=== PATIENT | male | born 1940 | race Caucasian/White ===

== ENCOUNTER 2021-08-17 09:57 | Day surgery (SDC) | payer MEDICARE, BC ==
[2021-08-17] VITALS (12 sets, daily range): BP systolic 134–157; BP diastolic 68–92
[~2021-08-17] VITALS: Ht 188 cm; Wt 126.2 kg
[~2021-08-17 09:57] MED LIST: AMLO2.5T5 PO; ASHW300C PO; CYAN250010 PO; ERGO400C PO; FOLI0.4T6 PO; LOSA100T57 PO; MAGN400T39 PO; PRAV20TA4 PO; SULF500T59 PO; ZINC50TA67 PO; cefazolin/dext.iso 2gm/50ml IV ONE; famotidine 20mg tablet PO ONE; ringers solution, lacted 1,000 ML IV SCH; tumeric PO
[2021-08-17] MEDS ORDERED: bacitracin 15gm ointment TP ONE ×2 (11:06→15:12)
[2021-08-17 11:25] LABS: BASOPHILS % (AUTO) 0.4 % (0-1); EOSINOPHILS # (AUTO) 0.1 X10'3 (0-0.9); EOSINOPHILS % (AUTO) 1.2 % (0-6); LYMPHOCYTES # (AUTO) 1.2 X10'3 (1.1-4.8); LYMPHOCYTES % (AUTO) 17.1 % (21-51); MEAN CORPUSCULAR HEMOGLOBIN 33.3 PG (27.0-31.0); MEAN CORPUSCULAR HGB CONC 34.1 g/dL (33.0-36.5); MEAN CORPUSCULAR VOLUME 97.5 FL (78-98); MEAN PLATELET VOLUME 6.7 FL (7.4-10.4); MONOCYTES # (AUTO) 0.6 X10'3 (0-0.9); MONOCYTES % (AUTO) 8.6 % (2-12); NEUTROPHILS % (AUTO) 72.7 % (42-75); PRE OP HEMATOCRIT 39.9 % (42.0-52.0); PRE OP HEMOGLOBIN 13.6 g/dL (14.0-17.9); PRE OP PLATELET COUNT 262 X10'3 (140-440); RED BLOOD COUNT 4.09 X10'6 (4.70-6.10); RED CELL DISTRIBUTION WIDTH 13.5 % (11.5-14.5)
[2021-08-17 11:52] LABS: ALBUMIN 3.9 G/DL (3.4-5.0); ALBUMIN/GLOBULIN RATIO 1.1 (1.1-1.5); ALKALINE PHOSPHATASE 75 IU/L (46-116); BLOOD UREA NITROGEN 21 MG/DL (7-18); CALCIUM 9.4 MG/DL (8.5-10.1); CHLORIDE 102 MMOL/L (99-107); PRE OP ALT 21 U/L (30-65); PRE OP ANION GAP 12 (8-16); PRE OP AST 19 U/L (10-37); PRE OP BILIRUB, TOTAL 0.5 MG/DL (0.0-1.0); PRE OP GLUCOSE 114 MG/DL (70-104); PRE OP POTASSIUM 4.2 MMOL/L (3.4-5.1); PRE OP SODIUM 139 MMOL/L (135-145); TOTAL CARBON DIOXIDE 24.9 MMOL/L (24-32); TOTAL PROTEIN 7.5 G/DL (6.4-8.2); eGFR 49 ML/MIN
[2021-08-17] MEDS ORDERED: BUPIVAcaine/PF 2.5 mg/ml (0.25%) 30ml vial ONE (12:44)
[2021-08-17] MEDS ORDERED: fentaNYL/PF 50MCG/1 ML 2ML syringe ONE (12:47)
[2021-08-17] MEDS ORDERED: MIDAZolam 1 MG/ML 5ML VIAL ONE ×2 (12:48→14:49)
--- NOTE | 2021-08-17 15:34 | NUR ---
Received from OR via [facility] , accompanied by Anesthesiologist DR TADEO and report given by Anesthesiolgist. PT AROUSALBE, AWAKE, ALERT AND ORIENTED. PT DENIES PAIN. DRSG TO RIGHT FOOT W/ SUGAR BANDAGE CDI. PT SENSATION NOTED TO BE AT MID THIGH LEVEL AT THIS TIME. UNABLE TO WIGGLE TOES OR MOVE FEET AT THIS TIME. PT DENIES NAUSEA AND STATES HE IS READY FOR A DRINK.
--- NOTE | 2021-08-17 16:02 | NUR ---
PT AWAKE, ALERT AND ORIENTED. ABLE TO WIGGLE FEET. SENSATION NOW AT KNEE LEVEL BILATERALLY. PT TOLERATING [place]. DENIES PAIN AND NAUSEA.
--- NOTE | 2021-08-17 16:17 | NUR ---
PT ABLE TO PIVOT TO W/C FROM BED W/ASSIST. D/C INSTRUCTIONS GIVEN AND GONE OVER W/PT AND PTS WHO VERBALIZED UNDERSTANDING. PTS PICKED UP A KNEE SCOOTER AND HAS AVAILABLE FOR PT WHEN HE GETS HOME, THEY ALSO STATED THEY HAVE A WALKER AND CRUTCHES. THEY ARE STAY[place] IN TOWN WITH FRIENDS THAT CAN ASSIST PT INTO THE HOUSE. PT W/SENSATION TO BOTH LEGS AND FEET. PT D/CD TO HOME VIA W/C TO PRIVATE VEHICLE W/O INCIDENT. Addendum: 08/17/21 at 1908 by Lisa Casarez RN TIME OF NOTE AND D/C WAS 1754
--- NOTE | 2021-08-17 16:50 | NUR ---
RECEIVED REPORT FROM RN, ASSUMED CARE OF PT, CALLED DR HOWELL AND CLARIFIED WEIGHT BEARING STATUS, PT REQUESTING TO BE ABLE TO USE A KNEE TROLLER, DR HOWELL SAID YES THAT HE COULD. PTS GOING TO [facility] TO HOME HEALTH ADMINISTRATOR KNEE STROLLER. PT W/O C/O. Addendum: 08/17/21 at 1741 by Lisa Casarez RN Amended: Links added.
[2021-08-18] MEDS ORDERED: FOLI0.8T3 PO (12:23)
[2021-08-18] MEDS ORDERED: TEMA15CA PO (12:23)
== END 2021-08-17 17:54 | disposition home or self-care (01) ==
LOC: PAS 09:57
PROVIDERS: ATTEND Podiatrist Foot & Ankle Surgery
DX: M19.071 Primary osteoarthritis, right ankle and foot (principal); M20.41 Other hammer toe(s) (acquired), right foot; M25.374 Other instability, right foot; M77.41 Metatarsalgia, right foot; M24.574 Contracture, right foot; M86.8X7 Other osteomyelitis, ankle and foot; G47.30 Sleep apnea, unspecified; I10 Essential (primary) hypertension; E66.01 Morbid (severe) obesity due to excess calories; Z68.34 Body mass index [BMI] 34.0-34.9, adult; Z87.891 Personal history of nicotine dependence; Z79.899 Other long term (current) drug therapy; Z72.89 Other problems related to lifestyle
CPT/HCPCS: 28112; 28113; 28270; 28285; 28750; 28825; 36415; 73620; 76000; 80053; 85025; 87635; 93005; A6223; C1713; C9803; J0690; J2250; J3010; J3490; J7030; J7120; Z7506; Z7508; Z7512; A4215; A4618; A6449; A7000

== ENCOUNTER 2021-08-18 01:51 | Observation (INO) | payer MEDICARE, BC ==
[~2021-08-18] VITALS: Ht 188 cm; Wt 125.0 kg
[~2021-08-18 01:51] MED LIST changes: -cefazolin/dext.iso 2gm/50ml IV ONE; -famotidine 20mg tablet PO ONE; -ringers solution, lacted 1,000 ML IV SCH
[2021-08-18] MEDS ORDERED: morphine 4 MG/ML inj SYRINge IV ONE (02:05)
[2021-08-18] MEDS ORDERED: ketorolac trometh. 30mg/ml inj. IV ONE (02:05)
[2021-08-18] MEDS ORDERED: ondansetron/PF 4mg/2ml inj IV ONE (02:05)
[2021-08-18] MEDS ORDERED: normal saline 1000ml 1,000 ML IV ONE (02:05)
[2021-08-18] MEDS ORDERED: HYDROmorphone inj. 0.5 MG/0.5 ML DISP.SYRIN IV ONE (02:40)
[2021-08-18] MEDS ORDERED: HYDROmorphone 1 mg/ml syringe IV ONE (02:40)
[2021-08-18] MEDS ORDERED: fentaNYL/PF 50MCG/1 ML 2ML syringe IV ONE (03:15)
[2021-08-18] MEDS ORDERED: LORazepam 2 mg/ml vial IV ONE (03:15)
[2021-08-18] MEDS ORDERED: iohexol 350MG/ML 100ml bottle IV ONE (03:21)
[2021-08-18 04:06] LABS: BASOPHILS % (AUTO) 0.3 % (0-1); EOSINOPHILS # (AUTO) 0.1 X10'3 (0-0.9); EOSINOPHILS % (AUTO) 0.8 % (0-6); HEMATOCRIT 35.4 % (42.0-52.0); HEMOGLOBIN 12.2 g/dl (14.0-17.9); LYMPHOCYTES % (AUTO) 11.3 % (21-51); MEAN CORPUSCULAR HEMOGLOBIN 33.8 PG (27.0-31.0); MEAN CORPUSCULAR HGB CONC 34.6 g/dL (33.0-36.5); MEAN CORPUSCULAR VOLUME 97.7 FL (78-98); MEAN PLATELET VOLUME 6.6 FL (7.4-10.4); MONOCYTES # (AUTO) 0.8 X10'3 (0-0.9); MONOCYTES % (AUTO) 8.6 % (2-12); NEUTROPHILS # (AUTO) 7.2 X10'3 (1.8-7.7); PLATELET COUNT 241 X10'3 (140-440); RED BLOOD COUNT 3.62 X10'6 (4.70-6.10); RED CELL DISTRIBUTION WIDTH 13.4 % (11.5-14.5); WHITE BLOOD COUNT 9.2 X10'3 (4.5-11.0)
[2021-08-18 04:22] LABS: ALANINE AMINOTRANSFERASE 19 U/L (12-78); ALBUMIN 3.4 G/DL (3.4-5.0); ALBUMIN/GLOBULIN RATIO 1.1 (1.1-1.5); ALKALINE PHOSPHATASE 73 IU/L (46-116); ANION GAP 9 (8-16); ASPARTATE AMINO TRANSFERASE 20 U/L (10-37); BILIRUBIN,TOTAL 0.4 MG/DL (0.1-1.0); BLOOD UREA NITROGEN 18 MG/DL (7-18); BUN/CREATININE RATIO 11.9 (5.4-32.0); CALCIUM 8.5 MG/DL (8.5-10.1); CHLORIDE 103 MMOL/L (99-107); CREATININE 1.51 MG/DL (0.60-1.10); GLUCOSE 121 MG/DL (70-104); POTASSIUM 4.2 MMOL/L (3.5-5.1); SODIUM 138 MMOL/L (135-145); TOTAL CARBON DIOXIDE 25.7 MMOL/L (24-32); TOTAL PROTEIN 6.4 G/DL (6.4-8.2); eGFR 45 ML/MIN
[2021-08-18 04:23] LABS: CREATINE KINASE 300 U/L (39-308)
[2021-08-18] MEDS ORDERED: acetaminophen 325mg tablet PO PRN ×2 (04:35)
[2021-08-18] MEDS: normal saline 1000ml 1,000 ML IV SCH ×2 (04:35→14:35)
[2021-08-18] MEDS ORDERED: mag hydrox/Alum hydrox/simeth 30ml oral suspension PO PRN (04:35)
[2021-08-18] MEDS ORDERED: HYDROmorphone/PF 0.2 MG/ML SYRINGE IV PRN (04:35)
[2021-08-18] MEDS ORDERED: HYDROmorphone inj. 0.5 MG/0.5 ML DISP.SYRIN IV PRN ×2 (04:35→12:26)
[2021-08-18] MEDS ORDERED: ondansetron/PF 4mg/2ml inj IV PRN (04:35)
[2021-08-18] MEDS: docusate sod 100mg capsule PO SCH ×2 (09:28→22:49)
[2021-08-18] MEDS ORDERED: FOLI0.8T3 PO (12:23)
[2021-08-18] MEDS ORDERED: TEMA15CA PO (12:23)
[2021-08-18] MEDS ORDERED: HYDROmorphone 1 mg/ml syringe IV PRN (12:26)
--- NOTE | 2021-08-18 12:59 | NUR ---
Given a lunch tray.
--- NOTE | 2021-08-18 16:50 | NUR ---
message to dr julio "Message: pt received 1mg dilaudid 75 min ago and still 05/23 pain 345 [place] ~Kimber [id number] Transaction number: [id number] "
--- NOTE | 2021-08-18 17:20 | NUR ---
dr julio returned page to give TO for 2mg dilaudid [id number], norco [id number]
[2021-08-18] MEDS ORDERED: HYDROcodone/acetaminophen 10/325mg tab PO PRN (17:25)
[2021-08-18] MEDS: HYDROmorphone 1 mg/ml syringe IV PRN ×2 (18:47→22:47)
[2021-08-18 20:00] VITALS: BP 165/82
[2021-08-18] MEDS ORDERED: enoxaparin 40mg/0.4ml syringe SQ SCH (20:00)
[2021-08-19] VITALS (12 sets, daily range): BP systolic 147–179; BP diastolic 66–95
[2021-08-19] MEDS: normal saline 1000ml 1,000 ML IV SCH ×2 (00:35→05:55)
[2021-08-19] MEDS: HYDROmorphone 1 mg/ml syringe IV PRN ×2 (03:34→07:41)
[2021-08-19 06:24] LABS: BASOPHILS % (AUTO) 0.3 % (0-1); EOSINOPHILS # (AUTO) 0.1 X10'3 (0-0.9); EOSINOPHILS % (AUTO) 1.1 % (0-6); HEMATOCRIT 35.6 % (42.0-52.0); HEMOGLOBIN 12.1 g/dl (14.0-17.9); LYMPHOCYTES # (AUTO) 1.2 X10'3 (1.1-4.8); LYMPHOCYTES % (AUTO) 12.9 % (21-51); MEAN CORPUSCULAR HEMOGLOBIN 33.5 PG (27.0-31.0); MEAN CORPUSCULAR HGB CONC 33.9 g/dL (33.0-36.5); MEAN CORPUSCULAR VOLUME 98.8 FL (78-98); MEAN PLATELET VOLUME 6.8 FL (7.4-10.4); MONOCYTES # (AUTO) 0.9 X10'3 (0-0.9); MONOCYTES % (AUTO) 9.9 % (2-12); NEUTROPHILS % (AUTO) 75.8 % (42-75); PLATELET COUNT 243 X10'3 (140-440); WHITE BLOOD COUNT 9.2 X10'3 (4.5-11.0)
[2021-08-19 06:33] LABS: ALANINE AMINOTRANSFERASE 17 U/L (12-78); ALBUMIN 3.4 G/DL (3.4-5.0); ALBUMIN/GLOBULIN RATIO 1.1 (1.1-1.5); ALKALINE PHOSPHATASE 60 IU/L (46-116); ANION GAP 7 (8-16); ASPARTATE AMINO TRANSFERASE 23 U/L (10-37); BILIRUBIN,TOTAL 0.6 MG/DL (0.1-1.0); BLOOD UREA NITROGEN 17 MG/DL (7-18); BUN/CREATININE RATIO 12.4 (5.4-32.0); CALCIUM 8.9 MG/DL (8.5-10.1); CHLORIDE 103 MMOL/L (99-107); CREATININE 1.37 MG/DL (0.60-1.10); GLUCOSE 111 MG/DL (70-104); POTASSIUM 4.4 MMOL/L (3.5-5.1); SODIUM 136 MMOL/L (135-145); TOTAL PROTEIN 6.6 G/DL (6.4-8.2); eGFR 50 ML/MIN
--- NOTE | 2021-08-19 06:44 | NUR ---
Problems reprioritized. Patient report given, questions answered & plan of care reviewed with ELVER Barrios.
--- NOTE | 2021-08-19 07:02 | NUR ---
Page sent to RT.. RoslynA Alem Spears: .New RT orders on this patient. thanks! Addendum: 08/19/21 at 0703 by Sophie Barahona RN Amended: Links added.
[2021-08-19] MEDS: docusate sod 100mg capsule PO SCH (07:40)
[2021-08-19] MEDS ORDERED: HYDROcodone/acetaminophen 5mg/325mg tablet PO PRN (11:35)
[2021-08-19] MEDS ORDERED: HYDROcodone/acetaminophen 10/325mg tab PO PRN (11:35)
--- NOTE | 2021-08-19 11:56 | NUR ---
t/c to Dr. Lynch who suggested a block before patient leaves and he ordered patient a new rx to [facility] [place] of percocet instead of the norcos. will give patient percocet here and notify Hospitalist of the recommendation of the block.
--- NOTE | 2021-08-19 12:01 | NUR ---
Message: Alem Carr: Spoke with Dr. Lynch [phone]. he suggested contacting an anesthesiologist and putting in a pop saphenous block before discharge. thank you! [id number] Transaction number: [id number]
[2021-08-19] MEDS ORDERED: oxyCODONE/APAP 10/325mg tablet PO PRN (12:20)
--- NOTE | 2021-08-19 13:30 | NUR ---
patient picked up for OR.
[2021-08-19] MEDS ORDERED: ROPIVAcaine 0.2%/PF PUMP/bolus 545 ML POPLITEAL SCH (14:20)
[2021-08-19] MEDS ORDERED: ROPIVAcaine 0.2% (10 MG/5 ML) BOLUS INJECTION POPLITEAL PRN (14:20)
[2021-08-19] MEDS ORDERED: midazolam 1 mg/ML 2ml injection ONE (14:23)
[2021-08-19] MEDS ORDERED: fentaNYL/PF 50MCG/1 ML 2ML syringe ONE (14:23)
--- NOTE | 2021-08-19 15:05 | NUR ---
Received from OR via , accompanied by Anesthesiologist DR STEWART and report given by Anesthesiolgist. PT PRESENTS WITH 18G RIGHT AC, ADDUCTOR CANAL BLOCK RIGHT WITH ON-Q, VSS. Addendum: 08/19/21 at 1524 by Daylin Persaud RN, RN Amended: Links added.
--- NOTE | 2021-08-19 15:50 | NUR ---
t/c from Dr. Mac requesting that patient be discharge from Recovery room.
[2021-08-19] MEDS ORDERED: ceFAZolin/D5W- 1GM premix 50 ML IV SCH (16:00)
--- NOTE | 2021-08-19 16:02 | NUR ---
patient discharged from recovery room. sent to recovery with his belongings from his room.
--- NOTE | 2021-08-19 16:25 | NUR ---
ALL DC CRITERIA MET, IV CATHETER DC'D CANULA INTACT. PT DC INSTRUCTIONS GIVEN TO PT AND PT'S INCLUDING USE OF INCENTIVE SPIROMETER, INSTUCTIONS ON ON-Q AND BROCHURE GIVE TO PT'S . PT'S BOOT PLACED ON RIGHT FOOT FOR PROTECTION. PT ADVISED TO FOLLOW UP WITH DR PLANNED. DC INSTRUCTIONS REVIEWED WITH PT AND PT'S WHO VERBALIZED UNDERSTANDING WITH NO FURTHER QUESTIONS AT THIS TIME. PT WHEELED OUT OF HOSPITAL BY NATALIE RAYA IN WHEELCHAIR TO MEET IN PRIVATE VEHICLE. Addendum: 08/19/21 at 1639 by Daylin Persaud RN, RN Amended: Links added.
== END 2021-08-19 16:07 | disposition home or self-care (01) ==
LOC: ER 01:52 → ED HOLD 04:38 → SUR 3N 16:30
PROVIDERS: ADMIT Family Medicine; ATTEND Family Medicine
DX: G89.18 Other acute postprocedural pain (principal); M79.671 Pain in right foot; G47.33 Obstructive sleep apnea (adult) (pediatric); N17.9 Acute kidney failure, unspecified; M20.41 Other hammer toe(s) (acquired), right foot; I10 Essential (primary) hypertension; E66.9 Obesity, unspecified; Z87.891 Personal history of nicotine dependence; Z79.899 Other long term (current) drug therapy
CPT/HCPCS: 36415; 64450; 73701; 80053; 82550; 83605; 84145; 85025; 87081; 96372; 96374; 96375; 96376; 99285; G0378; J1170; J1650; J1885; J2060; J2250; J2270; J2405; J2795; J3010; J7030; Q9967; 88305; 88311